=== PATIENT | male | born 1970 | race Caucasian/White ===

== ENCOUNTER 2019-03-12 18:37 | Emergency (ER) | payer MEDICAID ==
[2019-03-12 19:06] VITALS: BP 126/73
== END 2019-03-12 20:22 | disposition left against medical advice (07) ==
LOC: EMS 18:39
DX: F11.10 Opioid abuse, uncomplicated (principal); F13.10 Sedative, hypnotic or anxiolytic abuse, uncomplicated; R41.82 Altered mental status, unspecified; F41.9 Anxiety disorder, unspecified; F17.210 Nicotine dependence, cigarettes, uncomplicated; Z59.0 Homelessness
CPT/HCPCS: 99406